=== PATIENT | female | born 1995 | race Caucasian/White ===

== ENCOUNTER 2023-03-19 00:31 | Emergency (ER) | payer OTHER, SELFPAY ==
[2023-03-19] VITALS (7 sets, daily range): BP systolic 97–122; BP diastolic 55–79; PULSE 59–106; RESP 18; TEMP 36.2; O2SAT 98–100; BMI 20.1
--- NOTE | 2023-03-19 00:53 | ED.NAVMDI ---
HPI - Nausea/Vomiting/Diarrhea General Chief complaint: Nausea/Vomiting/Diarrhea Stated complaint: 13wks vomiting 10x since 7pm fuids? Time Seen by Provider: 03/19/23 00:52 Source: patient Mode of arrival: Wheelchair Limitations: no limitations History of Present Illness HPI Narrative: 27-year-old female reports 13 weeks and 5 days her with nausea vomiting this evening some lower abdominal cramping. Patient states she had issues with nausea vomiting with her prior up to 24 weeks. She states she has had mild issues but tonight was little bit more she was not able to stop vomiting this evening. She states typically she will throw up 1 time and then sort of settle. She did try promethazine at home, some famotidine and Benadryl which she states was not helpful. She states she is felt really cold but has not had any known fevers. Denies any cold cough congestion symptoms. No chest pain or shortness of breath. She describes some pelvic cramping. She states no vaginal bleeding or discharge. States no diarrhea or constipation, no dysuria, urgency or frequency. Patient has had multiple orthopedic surgeries in the past, did have a prior . She follows with [facility] for her care. She would ultrasound at 10 weeks which she reports as normal. No tobacco, alcohol or recreational drugs. She is accompanied by her . Related Data Previous Rx's Medication Instructions Recorded metoclopramide HCl 10 mg tablet 10 mg PO Q6H PRN nausea and 03/19/23 (Reglan) vomiting #10 tabs Allergies Allergy/AdvReac Type Severity Reaction Status Date / Time doxycycline Allergy Verified 03/19/23 00:50 Egg Derived Allergy Verified 03/19/23 00:50 gluten Allergy Verified 03/19/23 00:50 hepatitis B virus vaccine Allergy Verified 03/19/23 00:50 Penicillins Allergy Hives Verified 03/19/23 00:50 Review of Systems Review of Systems ROS Unobtainable: All systems reviewed & are unremarkable except as noted in HPI and below Patient History Social History Smoking Status: Never smoker Smoking Status: Never smoker Substance Use Type: does not use Exam Narrative Exam Narrative: GENERAL: Alert and oriented x three, thin female in mild distress. HEENT: Head normocephalic, atraumatic, EOMI, pupils reactive, face symmetric, moist mucous membranes NECK: Supple, full range of motion CARDIOVASCULAR: Regular rate and rhythm without murmurs, rubs or gallops. RESPIRATORY: Breath sounds equal bilaterally, no wheezes rales or rhonchi. ABDOMEN: Soft, nontender. Nondistended. Normoactive bowel sounds all 4 quadrants. No guarding or rebound, rigidity, no mass : No CVA tenderness EXTREMITIES: Normal range of motion, no clubbing or edema. Neurovascularly intact NEUROLOGICAL: Cranial nerves II through XII grossly intact. Moving all extremities SKIN: Warm, dry, no petechiae, no rashes or lesions. Initial Vital Signs Initial Vital Signs: Vital Signs Temperature 97.1 F L 03/19/23 00:43 Pulse Rate 106 H 03/19/23 00:43 Respiratory Rate 18 03/19/23 00:43 Blood Pressure 122/79 03/19/23 00:43 Pulse Oximetry 100 03/19/23 00:43 Oxygen Delivery Method Room Air 03/19/23 00:43 Course Orders Ordered: ED Orders 03/19/23 00:42 CBC Auto Diff [Complete Blood Count AUTO DIFF] Stat CMP [Comprehensive Metabolic Panel] Stat Lipase Stat Magnesium Stat 03/19/23 02:38 Urine Microscopic Stat Discontinued Medications Sodium Chloride (Normal Saline 0.9%) 1,000 mls @ 1,000 mls/hr IV BOLUS ONE Stop: 03/19/23 02:14 Last Infusion: 03/19/23 02:34 Dose: Infused Documented By: Admin: 03/19/23 01:23 Dose: 1,000 mls/hr Documented By: ENRIQUE Metoclopramide HCl (Metoclopramide 10 Mg/2 Ml Inj) 10 mg IV NOW ONE Stop: 03/19/23 01:16 Last Admin: 03/19/23 01:23 Dose: 10 mg Documented By: ENRIQUE Vital Signs Vital signs: Vital Signs - 8 hr 03/19/23 00:43 03/19/23 00:48 03/19/23 01:00 Temperature 97.1 F L Pulse Rate 106 H 59 L Respiratory Rate 18 Blood Pressure 122/79 97/55 L Pulse Oximetry 100 100 Oxygen Delivery Method Room Air 03/19/23 01:00 03/19/23 01:30 03/19/23 01:30 Temperature Pulse Rate 75 86 Respiratory Rate 18 Blood Pressure 107/64 Pulse Oximetry 100 98 Oxygen Delivery Method 03/19/23 02:00 03/19/23 02:00 03/19/23 02:30 Temperature Pulse Rate 82 Respiratory Rate Blood Pressure 105/62 100/63 Pulse Oximetry 100 Oxygen Delivery Method 03/19/23 02:30 03/19/23 03:00 Temperature Pulse Rate 93 H Respiratory Rate 18 18 Blood Pressure Pulse Oximetry 100 99 Oxygen Delivery Method MDM - Nausea/Vomiting/Diarrhea Lab Data 03/19/23 00:42 03/19/23 00:42 Labs: Lab Results 03/19/23 03/19/23 Range/Units 00:42 02:37 WBC 9.7 (4.5-11.0) X10^3/uL RBC 4.84 (4.0-5.2) X10^6/uL Hgb 14.6 (12.0-16.0) g/dL Hct 42.6 (36-46) % MCV 88.1 (80-100) fL MCH 30.3 (26-34) PG MCHC 34.4 (30-36) % RDW 13.8 (11.6-14.8) % Plt Count 270 (150-400) X10^3/uL Neut % (Auto) 89.3 H (50-75) % Lymph % (Auto) 5.5 L (25-40) % Gillespie % (Auto) 2.2 L (3-14) % Eos % (Auto) 1.6 L (2-4) % Baso % (Auto) 1.4 (0-2) % Neut # (Auto) 8700 H (4695-2074) /uL Lymph # (Auto) 500 L (7352-2710) /uL Gillespie # (Auto) 200 (0-900) /uL Eos # (Auto) 200 (0-450) /uL Baso # (Auto) 100 (0-100) /uL Sodium 134 L (137-145) mmol/L Potassium 3.7 (3.4-5.1) mmol/L Chloride 99 (98-107) mmol/L Carbon Dioxide 24 (22-32) mmol/L BUN 14 (7-17) mg/dL Creatinine 0.45 L (0.52-1.04) mg/dL Estimated GFR > 60 (>60) mL/min BUN/Creatinine Ratio 31.1 H (6-22) Glucose 117 H (70-100) mg/dL Calcium 9.1 (8.4-10.2) mg/dL Magnesium 1.7 (1.6-2.3) mg/dL Total Bilirubin 0.9 (0.2-1.3) mg/dL AST 28 (14-36) IU/L ALT 19 (<35) IU/L Alkaline Phosphatase 46 (38-126) U/L Total Protein 7.7 (6.3-8.2) g/dL Albumin 4.2 (3.5-5.0) g/dL Globulin 3.5 (1.7-4.1) g/dL Albumin/Globulin Ratio 1.2 (1.0-2.8) Lipase 87 (23-300) U/L Urine RBC None seen (0-5/HPF) Urine WBC 1-5/hpf (0-5/HPF) Ur Squamous Epith Cells 5-10 /hpf H (0-5/HPF) Urine Bacteria Moderate (10-30) H (None) Urine Mucus 3+ H (Negative) Ur Culture Indicated? Cult not indicated Vol Urine Centrifuged 10ml (spun) Urine Dip Bedside Urine Glucose Negative Bedside Urine Bilirubin + 1 Bedside Urine Ketone +++ 80 Urine Specific [place] 1.02 Bedside Urine Occult Blood - Negative Bedside Urine pH 6 Bedside Urine Protein +/- 15 Bedside Urine Urobilinogen - Negative Bedside Urine Nitrite - Negative Bedside Urine Leukocytes +/- 15 Esterase MDM Narrative Medical decision making narrative: 27-year-old female who is and reported 13 weeks and 5 days. Patient states had increased nausea vomiting this evening. She states she had electrolyte issues with her last and had issues with emesis up to 20 +weeks. Patient was slightly tachycardic upon arrival, blood pressure has been somewhat low but patient has a very thin body habitus. CBC shows a hemoglobin of 14 white count of 9.7, platelets of 270. Sodium is 134, potassium 3.7 with a creatinine of 0.45 and a BUN of 14, glucose is 117 calcium 9.1, Mag 1.7, lipase of 87 with otherwise appropriate LFTs. urine shows ketones, leukocyte esterase, urine microscopic no RBCs, 30 WBC 1-5 squamous 5-10, moderate bacteria, 3+ mucus. FHTs are 160s, taken by L&D. Patient received fluids and Reglan. Patient was requesting to drink and eat. States her blood sugars low that she checked it was 61. We checked with our glucose monitor and patient is 107. Patient states she feels comfortable to return home. Nausea has improved. Reviewed all her findings from today. We will give a short course of Reglan for home to try instead. Discharge Plan Departure Patient Disposition: Home Clinical Impression: Vomiting during Activity Restrictions/Additional Instructions: Follow up with your team as needed. Avoid taking the Reglan with your other antinausea medication, you can alternate them but do not take them together as you can sometimes get side effects. You can take reglan 1 tablet every 6 hours as needed for nausea/vomiting. Prescription sent to [facility] in [place] Please return for fevers, persistent vomiting, signs of dehydration, new abdominal back or flank pain, black or bloody stools, vaginal bleeding or other new or concerning changes. Prescriptions: New metoclopramide HCl [Reglan] 10 mg tablet 10 mg PO Q6H PRN (Reason: nausea and vomiting) Qty: 10 0RF Stand Alone Forms: Patient Portal/API
[2023-03-19] MEDS: SODIUM CHLORIDE 0.9% 1,000 ML 1000 ML IV (01:23)
[2023-03-19] MEDS: METOCLOPRAMIDE 10 MG/2 ML INJ IV (01:23)
[2023-03-19 01:31] LABS: Add Manual Diff / Slide Review NO; Basophils Absolute Auto 100 /uL (0-100); Basophils Percent Auto 1.4 % (0-2); Eosinophils Absolute Auto 200 /uL (0-450); Eosinophils Percent Auto 1.6 % (2-4); Hematocrit 42.6 % (36-46); Hemoglobin 14.6 g/dL (12.0-16.0); Lymphocytes Absolute Auto 500 /uL (1100-4500); Lymphocytes Percent Auto 5.5 % (25-40); Mean Corpuscular HGB Conc 34.4 % (30-36); Mean Corpuscular Hemoglobin 30.3 PG (26-34); Mean Corpuscular Volume 88.1 fL (80-100); Monocytes Absolute Auto 200 /uL (0-900); Monocytes Percent Auto 2.2 % (3-14); Neutrophils Absolute Auto 8700 /uL (1500-7000); Neutrophils Percent Auto 89.3 % (50-75); Platelet Count 270 X10^3/uL (150-400); Red Blood Cell Count 4.84 X10^6/uL (4.0-5.2); Red Cell Distribution Width 13.8 % (11.6-14.8); White Blood Cell Count 9.7 X10^3/uL (4.5-11.0)
[2023-03-19 01:34] LABS: Alanine Aminotransferase 19 IU/L (<35); Albumin 4.2 g/dL (3.5-5.0); Albumin Globulin Ratio 1.2 (1.0-2.8); Alkaline Phosphatase 46 U/L (38-126); Aspartate Aminotransferase 28 IU/L (14-36); BUN Creatinine Ratio 31.1 (6-22); Bilirubin Total 0.9 mg/dL (0.2-1.3); Blood Urea Nitrogen 14 mg/dL (7-17); Calcium 9.1 mg/dL (8.4-10.2); Carbon Dioxide 24 mmol/L (22-32); Chloride 99 mmol/L (98-107); Estimated Glomerular Filt Rate > 60 mL/min (>60); Globulin 3.5 g/dL (1.7-4.1); Glucose 117 mg/dL (70-100); HEMOLYSIS < 15 (0-50); Lipase 87 U/L (23-300); Magnesium 1.7 mg/dL (1.6-2.3); Potassium 3.7 mmol/L (3.4-5.1); Sodium 134 mmol/L (137-145); Total Protein 7.7 g/dL (6.3-8.2)
[2023-03-19 02:43] LABS: Urine Volume 10mL (spun)
[2023-03-19 02:53] LABS: Bacteria Urine Moderate (10-30); RBC Urine None Seen (0-5/HPF); Squamous Epithelial Cell Urine 5-10 /HPF (0-5/HPF); WBC Urine 1-5/HPF (0-5/HPF)
[2023-03-19 02:54] LABS: Mucus Urine 3+ (Negative)
[2023-03-19 02:55] LABS: Culture Indicated Urine Cult Not Indicated
== END 2023-03-19 03:14 | disposition home or self-care (01) ==
PROVIDERS: Emergency Provider Emergency Medicine
DX: O21.9 Vomiting of pregnancy, unspecified (principal); Z3A.13 13 weeks gestation of pregnancy
CPT/HCPCS: 36415; 80053; 81003; 81015; 83690; 83735; 85025; 96361; 96374; 99284; J2765

== ENCOUNTER 2023-07-13 15:19 | Observation (INO) | payer OTHER, SELFPAY ==
[2023-07-13] MEDS: LACTATED RINGERS 1,000 ML 1000 ML IV ×2 (16:00→17:32)
[2023-07-13] MEDS: METOCLOPRAMIDE 10 MG/2 ML INJ IV (16:30)
[2023-07-13] MEDS: PANTOPRAZOLE DR 40 MG TABLET PO (17:03)
[2023-07-13 17:36] LABS: Influenza A - CEPHEID Flu A NEGATIVE (NEGATIVE); Influenza B - CEPHEID Flu B NEGATIVE (NEGATIVE); Respiratory Syncytial Virus Negative (Negative)
[2023-07-13 17:38] LABS: COVID-19 CEPHEID 4-PLEX PCR Negative (Negative)
== END 2023-07-13 18:42 | disposition home or self-care (01) ==
PROVIDERS: Obstetrics & Gynecology; Admitting Provider Obstetrics & Gynecology; Visit Provider Obstetrics & Gynecology
DX: O21.9 Vomiting of pregnancy, unspecified (principal); O26.893 Other specified pregnancy related conditions, third trimester; R10.10 Upper abdominal pain, unspecified; Z3A.30 30 weeks gestation of pregnancy
CPT/HCPCS: 0241U; 59025; 59050; 96360; 96361; G0378; G0379; J2765

== ENCOUNTER 2023-08-05 13:05 | Observation (INO) | payer OTHER, SELFPAY ==
[2023-08-05] MEDS: NIFEdipine 10 MG CAPSULE PO ×4 (13:38→14:38)
--- NOTE | 2023-08-05 14:10 | DI.US.S_ITS ---
PROCEDURE: US OB LIMITED INDICATIONS: Discharge with contractions OUTSIDE/PRIOR DATING DATA: Last menstrual period (LMP): December 14, 2022. LMP-based estimated date of delivery (OSVALDO): September 20, 2023. First dating scan (date and location): Unknown. Estimated date of delivery (OSVALDO) from first dating scan: Not applicable The calculations are made using the LMP OSVALDO of September 20, 2023. TECHNIQUE: Real-time scanning was performed of the fetus, with image documentation. Endovaginal scanning: Performed COMPARISON: None. FINDINGS: A single living intrauterine gestation is present. Presentation: Vertex Placenta: Placental position is posterior, without previa. Normal >2 cm. Low lying is <2 cm to the edge. Previa covers the internal os. Amniotic fluid index: 17 cm, normal range is 5-24 cm. Single deepest vertical pocket is 4.7 cm. heart rate: 137 beats per minute. Maternal cervical canal: 3.8 cm long and closed. Normal lower limit is 2.5 cm. Clinically estimated gestational age: 33 weeks and 3 days Biparietal diameter: 8.4 cm, 33 weeks and 5 days. Head circumference: 30.6 cm, 34 weeks and 1 day Abdominal circumference: 30.6 cm, 34 weeks and 4 days Femur length: 6.4 cm, 33 weeks and 1 day Estimated gestational age by today's measurements is approximately 33 weeks and 6 days. Estimated weight of approximately 2329 g which correlates with the 60th percentile for gestational age.. IMPRESSION: Single living intrauterine gestation with estimated sonographic gestational age of approximately 36 weeks and 6 days versus approximately 33 weeks and 3 days by last menstrual period. Normal interval growth has occurred. Estimated weight measures at approximately the 60th percentile gestational age. Normal cervical length at 3.8 cm without evidence for cervical incompetence. Dictated by: Tunde Her M.D. on 08/05/2023 at 15:28 Approved by: Tunde Her M.D. on 08/05/2023 at 15:32
[2023-08-05] MEDS: NIFEdipine 30 MG TAB ER PO (15:40)
[2023-08-05 17:49] LABS: Appearance Urine UA Clear; Color Urine UA Yellow
[2023-08-05 17:50] LABS: Bilirubin Urine UA Negative (NEGATIVE); Glucose Urine UA NEGATIVE (Negative); Ketones Urine UA 1+ (NEGATIVE); Leukocyte Esterase Urine UA NEGATIVE (NEGATIVE); Nitrite Urine UA NEGATIVE (Negative); Occult Blood Urine UA Negative (Negative); Protein Urine UA Negative (Negative); Urine Volume 10mL (spun); Urobilinogen Urine UA 0.2 E.U./dL (0.2); pH Urine UA 7.5 (4.5-8.0)
[2023-08-05 17:51] LABS: Bacteria Urine None Seen; Culture Indicated Urine Cult Not Indicated; RBC Urine None Seen (0-5/HPF); Squamous Epithelial Cell Urine None Seen (0-5/HPF); WBC Urine None Seen (0-5/HPF)
== END 2023-08-05 16:25 | disposition home or self-care (01) ==
LOC: LABOR 16:44
PROVIDERS: Admitting Provider Student in an Organized Health Care Education/Training Program; Referring Provider Student in an Organized Health Care Education/Training Program; Visit Provider Student in an Organized Health Care Education/Training Program
DX: O60.03 Preterm labor without delivery, third trimester (principal); Z3A.33 33 weeks gestation of pregnancy
CPT/HCPCS: 59025; 59050; 76815; 76817; 81001; G0378; G0379